=== PATIENT | female | born 2000 | race Caucasian/White ===

== ENCOUNTER 2018-07-18 10:09 | Inpatient (IN) | payer OTHER ==
[~2018-07-18] VITALS: Ht 149.9 cm; Wt 54.4 kg
== END 2018-07-20 10:59 | DRG 743 ==
LOC: ER 10:09 → SEC-K 14:39 → OB/GYN 14:39 → O/R 15:47 → OB/GYN 18:31
PROVIDERS: Specialist
PROC: 0UT10ZZ Resection of Left Ovary, Open Approach (ICD-10-PCS; 2018-07-18)
PROC: BU46ZZZ Ultrasonography of Uterus (ICD-10-PCS; 2018-07-18)
PROC: 3E1M38Z Irrigation of Peritoneal Cavity using Irrigating Substance, Percutaneous Approach (ICD-10-PCS; 2018-07-18)
PROC: 0UT60ZZ Resection of Left Fallopian Tube, Open Approach (ICD-10-PCS; principal; 2018-07-18 15:00)
DX: N83.512 Torsion of left ovary and ovarian pedicle (principal); N83.292 Other ovarian cyst, left side

== ENCOUNTER 2018-07-20 22:37 | Emergency (ER) | payer OTHER ==
[~2018-07-20] VITALS: Ht 149.9 cm; Wt 54.4 kg
== END 2018-07-21 01:26 | disposition home or self-care (01) ==
LOC: ER 22:37
DX: R10.13 Epigastric pain (principal); R07.89 Other chest pain; R51 Headache; F06.4 Anxiety disorder due to known physiological condition

== ENCOUNTER 2018-07-24 07:59 | Emergency (ER) | payer OTHER ==
[~2018-07-24] VITALS: Ht 149.9 cm; Wt 54.4 kg
== END 2018-07-24 14:24 | disposition home or self-care (01) ==
LOC: ER 07:59
DX: R07.89 Other chest pain (principal); R06.02 Shortness of breath

== ENCOUNTER 2018-07-26 01:59 | Emergency (ER) | payer OTHER ==
[~2018-07-26] VITALS: Ht 149.9 cm; Wt 54.4 kg
== END 2018-07-26 06:53 | disposition home or self-care (01) ==
LOC: ER 01:59
DX: M54.6 Pain in thoracic spine (principal); M54.89 Other dorsalgia